=== PATIENT | male | born 1935 | race Caucasian/White ===

== ENCOUNTER 2021-05-24 15:37 | Inpatient (IN) | payer MEDICARE, SELFPAY ==
[2021-05-24] VITALS (17 sets, daily range): BP systolic 97–157; BP diastolic 50–74; PULSE 60–69; RESP 15–34; TEMP 36.3–38.6; O2SAT 95–98; BMI 28.0
--- NOTE | ~2021-05-24 | XR_ITS ---
EXAMINATION: XR chest 2V EXAM DATE: 05/24/2021 17:56 INDICATION: Fever, weakness 1 day after blood transfusion. TECHNIQUE: Frontal and lateral projections of the chest obtained and reviewed. There is no prior bella dy for comparison. FINDINGS: There is a dual lead pacemaker/AICD seen with leads projecting over the expected locations of the right atrial appendage and right ventricle. The lungs are clear. There are no pleural effusi ons. The cardiomediastinal silhouette is within normal limits. There is no pneumothorax suspected. The bones and soft tissues are unremarkable. Probable small to moderate hiatal hernia. IMPRESSION: No acute cardiopulmonary findings. Reviewed, dictated and finalized at location A. EDUCATOR
[2021-05-24 17:50] LABS: Hemoglobin 12.7 g/dL (14.0-18.0); Mean Corpuscular HGB Conc 32.6 g/dl (32-36); Mean Corpuscular Hemoglobin 30.3 pg (26-34); Mean Corpuscular Volume 93.1 fl (80-100); Mean Platelet Volume 8.5 fl (7.4-10.4); Platelet Count Result 150 k/mm3 (150-375); Red Blood Count 4.19 M/mm3 (4.6-6.20); Red Cell Distribution Width 13.9 % (11.5-14.5); White Blood Count 15.3 K/mm3 (4.5-10.0)
[2021-05-24 18:02] LABS: Anion Gap 10 mmol/L (8-16); Blood Urea Nitrogen 18 mg/dL (9-20); Calcium 9.4 mg/dL (8.4-10.2); Carbon Dioxide 21 mmol/L (22-30); Chloride 107 mmol/L (98-107); Estimated CRCL calculation 35 ml/min; Estimated Glomerular Filt Rate 48; Glucose 120 mg/dL (65-110); Potassium 4.5 mmol/L (3.4-5.0); Sodium 138 mmol/L (137-145)
[2021-05-24 18:21] LABS: Eosinophils Absolute Manual 0.15 K/mm3 (0.02-0.5); Eosinophils Percent Manual 1 % (0-4); Lymphocytes Absolute Manual 1.68 K/mm3 (1.1-4.5); Monocytes Absolute Manual 1.07 K/mm3 (0.1-0.90); Monocytes Percent Manual 7 % (3-9); Total Cells Counted 100
[2021-05-24 18:30] LABS: Neutrophils Percent Manual 81 % (46-73)
[2021-05-24 18:31] LABS: Platelet Estimate Adequate (Adequate)
[2021-05-24 18:33] LABS: Add Urine Microscopic? YES; Appearance Urine Cloudy (Clear); Bacteria Urine 1+ /hpf; Bilirubin Urine Negative (Negative); Blood Urine 3+ (Negative); Color Urine Yellow (Yellow); Glucose Urine UA Negative (Negative); Ketones Urine Negative (Negative); Leukocyte Esterase Ur 3+ LEU/UL (Negative); Mucus Urine Rare /lpf; Nitrate Urine Negative (Negative); Protein Urine 2+ mg/dL (Negative); RBC Urine >75 /hpf (0-2); Specific Grav Ur 1.019 (1.001-1.035); Urobilinogen Urine Negative mg/dL (<2.0); WBC Urine >75 /hpf
[2021-05-24] MEDS: IBUPROFEN 400 MG TABLET PO (18:36)
[2021-05-24 18:37] LABS: Lactic Acid Reflex 1.1 mmol/L (0.7-2.1)
[2021-05-24] MEDS: LACTATED RINGERS 1,000 ML 999 ML IV CONT (18:37)
--- NOTE | 2021-05-24 19:59 | ED.GENADULT ---
HPI - General Adult General Chief complaint: Weakness Stated complaint: sent by Dr. Matos Seen by Provider: 05/24/21 17:05 Source: patient Mode of arrival: ambulatory Limitations: no limitations History of Present Illness HPI narrative: 86-year-old male Here for fever Patient is receiving BCG intravesical treatments for bladder cancer with urology here His most recent treatment was yesterday These involve instilling the solution clamping of [place] for an hour then draining the bladder He said that he was warned that he could expect some side effects to the treatment such as fevers and muscle aches and flulike symptoms, and in fact he did experience the same symptoms after his first treatment However after the second treatment they seem to be exponentially worse, and he had a temperature of close to 102 at home Otherwise, he does not have a cough, he does not have nausea vomiting or diarrhea, he does not have any new rashes, he does not have low back pain in the area of his kidneys, and he does not have blood in his urine that he is noticed He does have dysuria Related Data Home Medications Medication Instructions Recorded Confirmed amiodarone 05/24/21 apixaban [Eliquis] mg 05/24/21 losartan 05/24/21 rosuvastatin mg 05/24/21 tamsulosin mg PO 05/24/21 Allergies Allergy/AdvReac Type Severity Reaction Status Date / Time quinine Allergy Other Verified 05/24/21 18:32 Review of Systems Review of Systems: All systems reviewed & are unremarkable except as noted in HPI and below Constitutional: Constitutional: Reports no additional constitutional complaints, Reports chills, Reports fatigue, Reports fever(s), Denies headache(s) and Reports weakness Eyes: Eyes: Reports no additional eye complaints and Denies change in vision ENT: Denies headache(s) and Denies sore throat Cardiovascular: Cardiovascular: Denies chest pain and Denies dyspnea Respiratory: Respiratory: Denies cough and Denies dyspnea Gastrointestinal: Gastrointestinal: Denies abdominal pain, Denies diarrhea and Denies vomiting Genitourinary: Genitourinary: Denies hematuria, Reports dysuria and Reports urinary frequency Musculoskeletal: Musculoskeletal: Reports myalgias, Denies deformity, Denies arthralgias, Denies joint swelling and Denies numbness Integumentary/Breasts: Skin/Breast: Denies erythema, Denies rash and Denies wounds Neurologic: Denies headache(s), Denies focal weakness and Denies numbness Psychiatric: Psychiatric: Reports no additional psychiatric complaints Endocrine: Endocrine: Reports no additional endocrine complaints Hematologic/Lymphatic: Hematologic/Lymphatic: Reports no additional hematologic/lymphatic complaints Allergic/Immunologic: Allergic/Immunologic: Reports no additional allergic/immunologic complaints Exam Const: General: cooperative, no acute distress and alert Orientation/consciousness: patient oriented x3 (alert) HENMT: Head: normal to inspection, normocephalic and atraumatic Ears: external ears normal General nose exam: no epistaxis Mouth: Yes moist mucous membranes Eyes: Conjunctivae: conjunctivae normal EOM: EOMs intact bilaterally Neck: Neck: normal visual inspection, no lymphadenopathy, supple and no JVD Resp: Effort & Inspection: normal respiratory effort and not labored Auscultation: clear to auscultation bilaterally, no rales, no rhonchi, no wheezes and other (BS =) Cardio: Rate: regular rate Rhythm: regular rhythm Heart sounds: no murmurs GI: GI Palp: Yes Soft to palpation, No Tenderness to palpation present (GI), No Guarding due to palpation present (GI) and No Rebound tenderness present : General: Yes no CVA tenderness Skin: General skin exam: normal color and no rashes or lesions noted Rashes: no rashes Neuro: General: patient oriented x3 (alert) and moves all extremities Speech: normal speech Extrem: General: normal to inspection and no pedal edema Psych: Affect: n
[2021-05-24] MEDS: CIPROFLOXACIN 500 MG TAB PO (20:17)
[2021-05-24] MEDS: LACTATED RINGERS 1,000 ML 150 ML IV CONT (21:49)
[2021-05-24] MEDS: FAMOTIDINE 20 MG/2 ML VIAL IV PUSH (21:49)
[2021-05-25] VITALS: BP 134/56; PULSE 60; RESP 16; TEMP 36.3; O2SAT 96
--- NOTE | 2021-05-25 | ADMGEN ---
This patient, Drew Woodard, was admitted to [facility] Surg Room 304-01 [id number]. Patient/family oriented to hospital policies and general routines including ID bracelet, bed and alarms, visiting hours, pain management, procedures, bathroom and other care routines, personal items, smoking policy, room service/diet, and visiting hours. Information on how to activate the Rapid Response Team has been discussed. Patient/Family are encouraged to report perceived risks to care and to ask questions if they do not understand what they are told or what they should do.
[2021-05-25] MEDS: LACTATED RINGERS 1,000 ML 125 ML IV CONT (04:38)
[2021-05-25 06:00] VITALS: BP 112/50; PULSE 60; RESP 18; TEMP 36.5; O2SAT 94
[2021-05-25 06:28] LABS: Anion Gap 9 mmol/L (8-16); Blood Urea Nitrogen 19 mg/dL (9-20); Calcium 8.8 mg/dL (8.4-10.2); Carbon Dioxide 22 mmol/L (22-30); Chloride 107 mmol/L (98-107); Estimated CRCL calculation 38 ml/min; Estimated Glomerular Filt Rate 53; Glucose 130 mg/dL (65-110); Sodium 138 mmol/L (137-145)
[2021-05-25 06:34] LABS: Basophils Percent Auto 0.2 % (0.2-1.2); Hematocrit 33.9 % (42.0-52.0); Hemoglobin 11.3 g/dL (14.0-18.0); Immature Granulocyte Absolute 0.34 K/mm3 (0.00-0.031); Immature Granulocyte Percent A 2.1 % (0-0.5); Lymphocytes Absolute Auto 1.19 K/mm3 (0.9-3.2); Lymphocytes Percent Auto 7.4 % (18.3-44.2); Mean Corpuscular HGB Conc 33.3 g/dl (32-36); Mean Corpuscular Hemoglobin 31.1 pg (26-34); Mean Corpuscular Volume 93.4 fl (80-100); Monocytes Absolute Auto 1.3 K/mm3 (0.1-0.6); Monocytes Percent Auto 8.1 % (2.6-8.5); Neutrophils Absolute Auto 13.2 K/mm3 (1.3-6.7); Neutrophils Percent Auto 82.2 % (45.5-73.1); Platelet Count Result 131 k/mm3 (150-375); Red Blood Count 3.63 M/mm3 (4.6-6.20); Red Cell Distribution Width 13.8 % (11.5-14.5); White Blood Count 16.1 K/mm3 (4.5-10.0)
[2021-05-25] MEDS: LOSARTAN POTASSIUM 50 MG TABLET PO (10:19)
[2021-05-25] MEDS: CIPROFLOXACIN 500 MG TAB PO (10:19)
[2021-05-25 10:20] VITALS: PULSE 74
[2021-05-25] MEDS: LOSARTAN POTASSIUM 25 MG TABLET PO (10:20)
[2021-05-25] MEDS: AMIODARONE HCL 200 MG TABLET PO (10:20)
[2021-05-25] MEDS: FAMOTIDINE 20 MG/2 ML VIAL IV PUSH (10:24)
--- NOTE | 2021-05-25 12:53 | WPDURCON ---
Assessment and Plan Assessment and plan (1) Fever: Code(s): R50.9 - Fever, unspecified Status: Acute Assessment and Plan: Resolved, continue Ciprofloxacin PO. Culture still pending at this time, will tailor PO antibiotics to culture sensitivity report. (2) Bladder cancer: Code(s): C67.9 - Malignant neoplasm of bladder, unspecified Status: Acute Assessment and Plan: I spoke with Dr. Mckay this morning regarding his plan of care. He agrees that this is likely just a response to BCG as it is happening within 24 hours of treatment then quickly resolves on it's own versus UTI. He is ok to discharge the patient home on Cipro and f/u next week for BCG as planned, if he has another response like this to BCG we will decrease his BCG dose by half. Urology Consult Note HPI Date Seen: 05/25/21 Requesting Physician: Sommer Menchaca MD Primary Care Provider: Drew Downs, Consult Narrative Narrative: Drew Woodard is a 86 year old male who is a well known patient of our practice, that arrived in the ER yesterday d/ acute onset of high fevers of 102 and dysuria s/p BCG treatment in the office for bladder cancer. He started a series of 6 treatments on 05/16/2021. He tolerated his first one fairly well. He experienced a few common side effects of a low grade temperature of 100.8 the first time, chills and fatigue which resolved quickly over the course of about 12-24 hours after his first infusion. He understood this was a normal, expected possible outcome after each treatment. He then proceeded to our office for his 2nd of 6 BCG treatments on 05/23/2021 and was feeling good. His UA did have leukocytes and RBC's present which is a normal finding in BCG patients, we do not treat for infection unless they are symptomatic. The treatment went well, no complications and he left feeling fine. He leaves a catheter in placed that is capped off and then drains his BCG two hours later and removes his santiago. He has a santiago placed that is left in place d/t incontinence and inability to hold the medication in his bladder for the recommended amount of time. He proceeded to develop a fever that was more elevated this time after treatment overnight and into yesterday morning/afternoon that was 102.5. It did decrease with Tylenol to 100.0 but quickly came back. He also c/o dysuria at that time. He denies hematuria, flank pain, abdominal pain, nausea, vomiting, coughing or SOB. He was started on PO Cipro and states he feels fine today. He is afebrile, but has an elevated WBC of 15.3, creatinine is slightly elevated at 1.30, UA is similar to his UA from the office but a urine culture is pending. Review of Systems Cardiovascular: Cardiovascular: Denies chest pain Respiratory: Respiratory: Reports no additional respiratory complaints Gastrointestinal: Gastrointestinal: Denies abdominal pain, Denies nausea and Denies vomiting Genitourinary: Genitourinary: Denies hematuria, Denies dysuria, Denies flank pain, Denies urinary frequency, Denies urinary hesitancy and Denies urinary urgency [facility] Family History Family History Sibling CAD (coronary artery disease) of artery bypass graft Mother Brain tumor (benign) Mother Liver cell damage Social History Social History Smoking status: Current every day smoker Tobacco type: cigarettes Second hand tobacco smoke exposure: No Alcohol intake: current Drinks per week: 7 Substance use: never Substance use type: does not use Spiritual care concerns: No Meds Home Medications and Allergies Home Medications Medication Instructions Recorded Confirmed Type acetaminophen [Tylenol] 650 mg PO BID PRN 05/24/21 05/24/21 History amiodarone 200 mg PO DAILY 05/24/21 05/24/21 History apixaban [Eliquis] 5 mg PO BID 05/24/21 05/24/21 History losartan 50 mg PO BID
--- NOTE | 2021-06-15 13:02 | PM.DS ---
DS: Admitting Diagnosis Discharge Date 05/25/21 Admitting Diagnosis UTI/Prostate Cancer DS: Discharge Diagnosis Discharge Diagnosis (1) Bladder cancer: Code(s): C67.9 - Malignant neoplasm of bladder, unspecified Status: Acute (2) UTI (urinary tract infection): Code(s): N39.0 - Urinary tract infection, site not specified Status: Acute DS: Summary Hospital Course Hospital Course: Drew Woodard is a 86 year old male who is a well known patient of our practice, that arrived in the ER on 05/24/2021 d/t acute onset of high fevers of 102 and dysuria s/p BCG treatment in the office for bladder cancer. He started a series of 6 treatments on 05/16/2021. He tolerated his first one fairly well. He experienced a few common side effects of a low grade temperature of 100.8 the first time, chills and fatigue which resolved quickly over the course of about 12-24 hours after his first infusion. He understood this was a normal, expected possible outcome after each treatment. He then proceeded to our office for his 2nd of 6 BCG treatments on 05/23/2021 and was feeling good. His UA did have leukocytes and RBC's present which is a normal finding in BCG patients, we do not treat for infection unless they are symptomatic. The treatment went well, no complications and he left feeling fine. He leaves a catheter in placed that is capped off and then drains his BCG two hours later and removes his santiago. He has a santiago placed that is left in place d/t incontinence and inability to hold the medication in his bladder for the recommended amount of time. He proceeded to develop a fever that was more elevated this time after treatment overnight and into yesterday morning/afternoon that was 102.5. It did decrease with Tylenol to 100.0 but quickly came back. He also c/o dysuria at that time. He denies hematuria, flank pain, abdominal pain, nausea, vomiting, coughing or SOB. He was started on PO Cipro and states he feels fine today. He is afebrile, but has an elevated WBC of 15.3, creatinine is slightly elevated at 1.30, UA is similar to his UA from the office but a urine culture is pending. Patient will go home with Ciprofloxacin and resume BCG next week. He can resume normal activity and diet. Status at Discharge Functional status at discharge: independent ambulation Overall status at discharge: patient is progressing back to baseline Time Spent with Patient Time spent: Greater than 30 minutes Discharge Plan Discharge Attending physician on discharge: Hansel Medel Consulting providers: Mumtaz Story Discharging Clinician: Denise Jean-Baptiste Anticipated Discharge Date/Time: 05/25/21 12:44 Patient Disposition: Home, Self-Care Activity: may shower Diet: as tolerated Discharge Instructions: Continue Ciprofloxacin twice daily until you are finished with your antibiotics. You will plan to f/u next week for your next BCG treatment as planned. Call the office or go to the ER if you develop a fever >102 or experience worsening urinary symptoms. Patient Instructions: Antibiotic Form, Apixaban (By mouth), How to Stop Smoking (DC), Urinary Tract Infection in Older Adults (DC) Stand Alone Forms: General Discharge Information Follow-up/Referrals: Hansel Medel MD [Physician] - Discharge Medications: New ciprofloxacin HCl 500 mg Tablet 500 mg PO Q12HR 5 Days Qty: 10 RF: 0 Continued losartan 50 mg tablet 50 mg PO BID RF: 0 amiodarone 200 mg tablet 200 mg PO DAILY RF: 0 tamsulosin 0.4 mg capsule 0.4 mg PO HS RF: 0 rosuvastatin 10 mg tablet 10 mg PO EVERY OTHER DAY RF: 0 Eliquis 5 mg tablet 5 mg PO BID RF: 0 acetaminophen [Tylenol] 325 mg Tablet 650 mg PO BID PRN (Reason: Pain, Mild) RF: 0 Date of admission: 05/24/21 20:06 Primary Care Provider: ,Drew Boston Admitting Provider: Sommer Menchaca Attending physician on admission: Denise Jean-Baptiste Condition: Stable
== END 2021-05-25 13:30 | disposition home or self-care (01) | DRG 690 ==
LOC: ANHED 20:06 → ANH3MEDSUR 05-25 00:14 → ANHICU 05-29 14:22
PROVIDERS: Admitting Provider Urology; Emergency Provider Emergency Medicine; PCP Internal Medicine; Visit Provider Nurse Practitioner Adult Health
DX: N39.0 Urinary tract infection, site not specified (principal); C67.9 Malignant neoplasm of bladder, unspecified; F17.210 Nicotine dependence, cigarettes, uncomplicated; Z23 Encounter for immunization
CPT/HCPCS: 36415; 71046; 80048; 81001; 83605; 85025; 87077; 87086; 87088; 87186; 90471; 90653; 96360; 99285; A9270; G0008; J7120